=== PATIENT | male | born 1990 | race Caucasian/White ===

== ENCOUNTER 2017-04-03 12:20 | Emergency (ER) | payer OTHER | END 2017-04-03 15:40 | disposition home or self-care (01) | LOC: FER 12:20 | DX: K13.70 Unspecified lesions of oral mucosa (principal); K02.9 Dental caries, unspecified; K03.81 Cracked tooth; F17.210 Nicotine dependence, cigarettes, uncomplicated | CPT/HCPCS: 99282 ==